=== PATIENT | female | born 1960 | race Caucasian/White ===

== ENCOUNTER 2022-01-20 07:46 | Day surgery (SDC) | payer OTHER, MEDICAID ==
[~2022-01-20] VITALS: Ht 162.6 cm; Wt 88.9 kg
[~2022-01-20 07:46] MED LIST: DIPHENHYDRAMINE INJ 50 MG/ML VIAL ONE; MIDAZOLAM HCL 5 MG/5 ML VIAL ONE
[2022-01-20] MEDS ORDERED: MIDAZOLAM HCL 5 MG/5 ML VIAL ONE (08:42)
[2022-01-20] MEDS ORDERED: DIPHENHYDRAMINE INJ 50 MG/ML VIAL ONE (08:43)
[2022-01-20] MEDS ORDERED: BUPIVACAINE /PF 0.25% 30 ML VIAL INJ ONE (11:11)
[2022-01-20] MEDS ORDERED: IOHEXOL 300mgI/mL,100 ML INFUS..BTL IV ONE (11:11)
[2022-01-20] MEDS ORDERED: methylPREDNISolone ACETATE 40 MG/ML ONE (11:11)
[2022-01-20] MEDS ORDERED: LIDOCAINE 2%, 20 ML MDV ONE (11:11)
[2022-01-20] MEDS ORDERED: BACLOFEN 10 MG TABLET PO ONE (12:00)
[2022-01-20 13:09] VITALS: BP_SYST 114
== END 2022-01-20 12:45 | disposition home or self-care (01) ==
LOC: SDS 07:46 → SMU 07:47 → SDS 12:45
PROVIDERS: ATTEND Internal Medicine
DX: M51.16 Intervertebral disc disorders with radiculopathy, lumbar region (principal); M47.26 Other spondylosis with radiculopathy, lumbar region; Z20.822 Contact with and (suspected) exposure to COVID-19; Z79.899 Other long term (current) drug therapy
CPT/HCPCS: 36415 ×2; 62323; 87426; U0003; J3490; J1200; J2001; J1030; Q9967; 76000; J2250